=== PATIENT | male | born 1970 | race Caucasian/White ===

== ENCOUNTER 2017-03-04 09:43 | Emergency (ER) | payer SELFPAY ==
[~2017-03-04] VITALS: Ht 182.9 cm; Wt 94.7 kg
[~2017-03-04 09:43] MED LIST: AMIT50TA PO; TRAZ100T15 PO
[2017-03-04] MEDS ORDERED: OXYcodone/APAP 5/325MG TABLET ONE (11:09)
[2017-03-04] MEDS ORDERED: OXYcodone/APAP 5/325MG TABLET PO ONE (11:30)
[2017-03-04 11:50] VITALS: BP 145/78
== END 2017-03-04 11:52 | disposition home or self-care (01) ==
LOC: ED 10:27
DX: M54.16 Radiculopathy, lumbar region (principal); M79.662 Pain in left lower leg; F17.200 Nicotine dependence, unspecified, uncomplicated; G89.29 Other chronic pain
CPT/HCPCS: 72110; 72170; 99284

== ENCOUNTER 2017-10-29 18:00 | Emergency (ER) | payer MEDICAID ==
[~2017-10-29] VITALS: Ht 182.9 cm; Wt 93.1 kg
[~2017-10-29 18:00] MED LIST changes: +DULO30CA2 PO; +HYDR25CA94 PO; +IBUP-1222 PO; +METH750T2 PO; +TRAZ150T62 PO
[2017-10-29 18:05] VITALS: BP 176/89
[2017-10-29] MEDS ORDERED: HYDROmorphone 1 MG/ML, 1ML IM ONE ×2 (18:30→19:30)
[2017-10-29] MEDS ORDERED: ONDANSETRON ODT 4 MG PO ONE (18:30)
[2017-10-29] MEDS ORDERED: FLUORESCEIN OPHTHALMIC 1 MG STRIP EACHEYE ONE (18:30)
[2017-10-29] MEDS ORDERED: PROPARACAINE OPHTH 0.5%, 15ML ONE (18:31)
[2017-10-29] MEDS ORDERED: ONDANSETRON ODT 4 MG ONE (18:35)
[2017-10-29] MEDS ORDERED: HYDROmorphone 2 MG/ML, 1ML ONE ×2 (18:36→19:21)
[2017-10-29] MEDS ORDERED: ERYTHROMYCIN OPHTH 0.5%, 1GM RIGHTEYE ONE (20:30)
== END 2017-10-29 20:39 | disposition home or self-care (01) ==
LOC: ED 19:00
DX: T26.11XA Burn of cornea and conjunctival sac, right eye, initial encounter (principal); X10.2XXA Contact with fats and cooking oils, initial encounter; Y93.89 Activity, other specified; Y99.8 Other external cause status; Y92.89 Other specified places as the place of occurrence of the external cause
CPT/HCPCS: 96372; 99284; J1170; Q0162

== ENCOUNTER 2019-03-20 18:24 | Emergency (ER) | payer MEDICAID ==
[~2019-03-20] VITALS: Ht 182.9 cm; Wt 61.0 kg
[~2019-03-20 18:24] MED LIST changes: +TRAZ-137 PO; -TRAZ100T15 PO
[2019-03-20] MEDS ORDERED: morphine PO (18:43)
[2019-03-20] MEDS ORDERED: OXYC-307 PO (18:43)
[2019-03-20] MEDS ORDERED: TRAZ50TA66 PO (18:43)
[2019-03-20] MEDS ORDERED: hydroxyzine PO (18:43)
--- NOTE | 2019-03-20 18:43 | NUR ---
Pt BIBA to ED from home. c/o migraine x3 days. +photophobia. PEARRL 4. HAMMOND, 5/5 strength. gait steady. denies n/v. takes morphine/perc/ibuprofen for chx back pain, no relief. vss. awaiting md mercedes. 01/26 pain. calm, cooperative. call hopson in reach.
[2019-03-20] MEDS ORDERED: DIPHENHYDRAMINE 50 MG/ML, 1ML IVPush STA (18:47)
[2019-03-20] MEDS ORDERED: SODIUM CHLORIDE FLUSH 10ML SYR IVF ONE (19:00)
[2019-03-20] MEDS ORDERED: METOCLOPRAMIDE 5 MG/ML, 2ML IVPush ONE (19:00)
[2019-03-20] MEDS ORDERED: SODIUM CHLORIDE 0.9% 1,000ML IVBOLUS ONE (19:00)
[2019-03-20] MEDS ORDERED: KETOROLAC 30 MG/1 ML IVPush ONE (19:00)
[2019-03-20] MEDS ORDERED: KETOROLAC 30 MG/1 ML ONE (19:11)
[2019-03-20] MEDS ORDERED: METOCLOPRAMIDE 5 MG/ML, 2ML ONE (19:11)
[2019-03-20] MEDS ORDERED: DIPHENHYDRAMINE 50 MG/ML, 1ML ONE (19:11)
[2019-03-20] MEDS ORDERED: DIPHENHYDRAMINE 50 MG/ML, 1ML IVPush ONE (19:30)
[2019-03-20 19:45] LABS: BASOPHILS # (AUTO) 0.08 x10^3/uL (0-0.1); BASOPHILS % (AUTO) 1 % (0-1); EOSINOPHILS # (AUTO) 0.05 x10^3/uL (0-0.4); EOSINOPHILS % (AUTO) 1 % (1-7); LYMPHOCYTES % (AUTO) 21 % (22-44); MD NO; MEAN CORPUSCULAR HEMOGLOBIN 32.3 pg (27.5-34.5); MEAN CORPUSCULAR HGB CONC 33.4 g/dL (33.2-36.2); MEAN CORPUSCULAR VOLUME 96.7 fL (81-97); MEAN PLATELET VOLUME 7.5 fL (7.4-10.4); MONOCYTES # (AUTO) 0.42 x10^3/uL (0.2-0.8); MONOCYTES % (AUTO) 5 % (2-9); NEUTROPHILS # (AUTO) 6.51 x10^3/uL (1.8-6.8); NEUTROPHILS % (AUTO) 73 % (42-75); PLATELET COUNT 232 x10^3/uL (130-400); RED BLOOD COUNT 5.07 x10^6/uL (4.38-5.82); RED CELL DISTRIBUTION WIDTH 13.1 % (9.4-14.8)
--- NOTE | 2019-03-20 19:54 | NUR ---
PT C/O SEVERE GOLDEN EVEN AFTER MEDS HAVE BEEN GIVEN. STS HE IS AN HOUR LATE FOR HIS HOME MEDS (MORPHINE). MD UPDATED, STS WILL RECHECK PT. STILL WAITING ON LAB RESULTS AT THIS TIME. CALL LIGHT WITHIN REACH.
[2019-03-20 19:55] LABS: ALBUMIN 4.1 g/dL (3.4-5.0); ANION GAP 7 mmol/L (5-15); CHLORIDE 108 mmol/L (98-107)
--- NOTE | 2019-03-20 20:06 | NUR ---
pt oob to bathroom. vss. intermittently calm or yelling. asking for his home morphine and pain meds. notified.
[2019-03-20 20:08] LABS: ALANINE AMINOTRANSFERASE 27 U/L (12-78); ALKALINE PHOSPHATASE 63 U/L (45-117); BILIRUBIN,TOTAL 0.8 mg/dL (0.2-1.0); CREATININE 0.77 mg/dL (0.7-1.3); TOTAL PROTEIN 7.1 g/dL (6.4-8.2)
--- NOTE | 2019-03-20 20:09 | NUR ---
vss. Dr. Ahmadi in room for reeval. pt to be dc home. pt told md that his head feels better. when talking wtih rn he expressed anxiety re: discharge and med availability. As
[2019-03-20 20:58] VITALS: BP 134/6
== END 2019-03-20 21:05 | disposition home or self-care (01) ==
LOC: ED 20:40
DX: G43.009 Migraine without aura, not intractable, without status migrainosus (principal); H53.143 Visual discomfort, bilateral; G89.29 Other chronic pain; F17.200 Nicotine dependence, unspecified, uncomplicated; Z72.89 Other problems related to lifestyle
CPT/HCPCS: 36415; 80053; 85025; 96374; 96375; 99283; J1200; J1885; J2765; J7030